=== PATIENT | female | born 1970 | race Caucasian/White ===

== ENCOUNTER 2017-11-26 22:20 | Emergency (ER) | payer SELFPAY ==
[2017-11-26 22:55] VITALS: BP 120/58
--- NOTE | 2017-11-27 02:58 | RADIOLOGY REPORT (SQ) ---
EXAM DESCRIPTION: Left rib series with single view chest CLINICAL HISTORY: rib pain COMPARISON: None. FINDINGS: Single view of the chest with 2 views of the left ribs. Cardiomediastinal silhouette has normal size and contour. No consolidation, pneumothorax, or pleural effusion. Upper abdominal soft tissues unremarkable. No left rib fracture identified. IMPRESSION: No left rib fracture identified.
[2017-11-27] MEDS ORDERED: PROPOFOL 100 ML IV PRN (03:13)
[2017-11-27] MEDS ORDERED: DEXTROSE 5%-WATER 250 ML with NOREPINEPHRINE BITARTRATE 4 MG IV PRN ×2 (03:14)
[2017-11-27] MEDS ORDERED: SUCCINYLCHOLINE CHLORIDE INJ 200 MG/10 ML VIAL IV ONE (03:14)
[2017-11-27] MEDS ORDERED: ETOMIDATE INJ/PF 20 MG/10 ML SDV IV ONE (03:14)
--- NOTE | 2017-11-27 03:24 | ER Document Report ---
ED General - General Chief Complaint: Abdominal Pain Stated Complaint: RIB PAIN Time Seen by Provider: 11/27/17 01:10 Notes: Patient is a 47-year-old female who presents with complaint of pain in her right lower rib. She says she first noticed it at work 2 weeks ago. 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 She says she was lifting something heavy overhead and felt a little tear pain over her right lower rib. Tonight she was doing the same thing again and felt a pop. She feels as if they are swollen. She denies any actual abdominal pain. No difficulty breathing. No fevers. No other complaints at this time. - Related Data Allergies/Adverse Reactions: No Known Allergies Allergy (Unverified 11/26/17 22:49) Past Medical History - Social History Smoking Status: Current Every Day Smoker Chew tobacco use (# tins/day): No Frequency of alcohol use: None Drug Abuse: None Family History: Reviewed & Not Pertinent Patient has suicidal ideation: No Patient has homicidal ideation: No Renal/ Medical History: Denies: Hx Peritoneal Dialysis Review of Systems - Review of Systems Notes: My Normal Review Basic REVIEW OF SYSTEMS: CONSTITUTIONAL : Denies fever, chills, or sweats. Denies recent illness. EENT: Denies eye, ear, throat, or mouth pain or symptoms. Denies nasal or sinus congestion. CARDIOVASCULAR: Right lower rib pain. No precordial chest pain.. RESPIRATORY: Denies cough, cold, or chest congestion. Denies shortness of breath, difficulty breathing, or wheezing. GASTROINTESTINAL: Denies abdominal pain. Denies nausea, vomiting, or diarrhea. Denies constipation. Last BM: MUSCULOSKELETAL: Denies neck or back pain or joint pain or swelling. ALL OTHER SYSTEMS REVIEWED AND NEGATIVE. Physical Exam - Vital signs Vitals: Temp Pulse Resp BP Pulse Ox 97.7 F 67 18 120/58 L 97 11/26/17 22:52 11/26/17 22:52 11/26/17 22:52 11/26/17 22:52 11/26/17 22:52 - Notes Notes: General Appearance: Well nourished, alert, cooperative, no acute distress, mild obvious discomfort. Vitals: reviewed, See vital signs table. Eyes: PERRL, EOMI, Conjuctiva clear Chest Wall: Patient has some pain to palpation over the costochondral junction over the anterior 12th and 11th ribs on the right side. No actual swelling of this area. Abdomen below the ribs is nontender. Lungs: No wheezing, No rales, No rhonci, No accessory muscle use, good air exchange bilaterally. Heart: Normal rate, Regular rythm, No murmur, no rub Abdomen: Normal BS, soft, No rigidity, No abdominal tenderness, No guarding, no rebound, no abdominal masses, no organomegaly Extremities: strength 5/5 in all extremities, good pulses in all extremities, no swelling or tenderness in the extremities, no edema. Skin: No rash along the flank or back. Neuro: speech clear, oriented x 3, normal affect, responds appropriately to questions. Course - Re-evaluation Re-evalutation: 11/27/17 06:09 Patient has what appears to be probably small cartilage tare at the costochondral junction. She is not in any significant distress. X-ray does not show evidence of fracture. Feel she is safe to be discharged home. I encourage her to avoid heavy lifting for the next 2 weeks. I did write her a work note saying that she cannot lift more than 10 pounds for the next 2 weeks. Encourage encourage her to take Tylenol Motrin for pain. She is to return to ER if she has worsening pain, difficulty breathing, fevers, or feels unwell. Patient agrees with plan will be discharged home. Dictation of this chart was performed using voice recognition software; therefore, there may be some unintended grammatical errors. - Vital Signs Vital signs: Temp Pulse Resp BP Pulse Ox 97.7 F 67 18 120/58 L 97 11/26/17 22:52 11/26/17 22:52 11/26/17 22:52 11/26/17 22:52 11/26/17 22:52 Discharge - Discharge Clinical Impression: Rib pain on right side Condition: Good Disposition: HOME, SELF-CARE Additional Instructions: Please take Ibuprofen 400mg every 6 hours and Tylenol 500mg every 4 hours for pain. Please follow up closely with your primary care physician in 3-5 days for reevaluation. No heavy lifting until you are not feeling better. Forms: Special Work Note
== END 2017-11-27 03:56 | disposition home or self-care (01) ==
LOC: ER 22:20
DX: R07.81 Pleurodynia (principal); X50.0XXA Overexertion from strenuous movement or load, initial encounter; Y92.512 Supermarket, store or market as the place of occurrence of the external cause; Y99.0 Civilian activity done for income or pay; F17.200 Nicotine dependence, unspecified, uncomplicated
CPT/HCPCS: 99283; J0330